=== PATIENT | female | born 1985 | race Caucasian/White ===

== ENCOUNTER 2024-11-26 12:21 | Emergency (ER) | payer OTHER, SELFPAY ==
[2024-11-26 12:23] VITALS: BP 111/80; PULSE 64; RESP 18; TEMP 36.9; O2SAT 95; BMI 26.9
--- NOTE | 2024-11-26 12:30 | EX.ED.DYSGE1 ---
HPI History of Present Illness Chief Complaint: Seizure [facility] Medical History (Updated 11/26/24 @ 12:30 by Meghna Centeno) Epilepsy Home Medications ?Medication ?Instructions ?Recorded ?Last Taken ?Type cephalexin 500 mg capsule 500 mg PO TID #15 caps 11/26/24 Unknown Rx gabapentin 100 mg capsule 100 mg PO DAILY 11/26/24 11/25/24 History gabapentin 300 mg capsule 300 mg PO DAILY 11/26/24 11/25/24 History lacosamide 200 mg tablet 200 mg PO BID 11/26/24 11/25/24 History lamotrigine 25 mg tablet 50 mg PO DAILY 11/26/24 Unknown History levetiracetam 500 mg tablet 1,500 mg PO BID 11/26/24 11/25/24 History (Keppra) metoclopramide HCl 5 mg tablet 25 mg PO DAILY 11/26/24 11/25/24 History (Reglan) Allergy/AdvReac Type Severity Reaction Status Date / Time bee venom protein (honey Allergy Severe Anaphylaxis Verified 11/26/24 12:23 bee) (bees) Sulfa (Sulfonamide Allergy Mild Rash Verified 11/26/24 12:23 Antibiotics) Surgical History (Updated 11/26/24 @ 12:30 by Meghna Centeno) Hx of cholecystectomy Social History Smoking Status: Never smoker EXAM Physical Exam Const Vital Signs: 11/26/24 12:23 11/26/24 13:59 11/26/24 14:41 Temperature 98.5 F Temperature Source Oral Pulse Rate 64 67 65 Respiratory Rate 18 21 H 12 Blood Pressure 111/80 102/74 108/72 Blood Pressure Mean 90 83 84 Pulse Ox 95 95 98 Oxygen Delivery Method Room Air Room Air 11/26/24 15:55 Temperature 98 F Temperature Source Pulse Rate 66 Respiratory Rate 22 H Blood Pressure 102/71 Blood Pressure Mean 81 Pulse Ox 95 Oxygen Delivery Method MDM MDM MDM Narrative Medical decision making narrative: HISTORY OF PRESENT ILLNESS: Chief complaint: Questionable seizure 39-year-old female presents altered mental status after being found down in the field. There is a reported history of seizure disorder. Per EMS patient was confused on initial evaluation. Patient states she has recently had a med change which she added lacosamide to her seizure control regimen which included Keppra and lamotrigine. Patient states since she made this change and added lacosamide she has had increased frequency of seizures. Notes last seizure was today. Patient was found down and confused. Patient notes lasting treatment which was at home. She denies tongue biting. Denies recent headache. Denies trauma. Denies fever. Notes compliance of medication although she got take medication this morning. Denies trouble with urination, burning, frequency or urgency. Denies change in bowel or bladder habits. REVIEW OF SYSTEMS: Pertinent positives: Seizure Pertinent negatives: Headache, chest pain, vomiting, abdominal pain PHYSICAL EXAM: Nursing triage notes reviewed, Vital signs reviewed Constitutional: please see mdm HENT: MMM, no tongue biting Eyes: Pupils equal round and reactive to light, Extraocular muscles intact Neck: No stridor, no JVD, full neck ROM Lungs: Clear to auscultation, No wheezing or rales. No increased work of breathing, no conversational dyspnea, no accessory muscle use, no nasal flaring. No respiratory distress noted Heart: Regular rate and rhythm, No murmurs, No rubs and No gallops, 2+ distal pulses (radial, femoral, posterior tibial) in all extremities Abdomen: Soft, there is no tenderness, rigidity, rebound or guarding, no obvious peritoneal signs, no palpable pulsatile abdominal masses, no auscultated abdominal bruit : No CVAT, no bowel or bladder incontinence noted Extremities: No edema Neuro: Alert, oriented to person, place, time no new focal neurological deficits, cranial nerves II through XII intact, 5/5 strength in all present extremities. Intact sensation to light touch in all present extremities, 2+ reflexes bilateral patella tendons. Skin: No rash or lesions noted MEDICAL DECISION MAKING: Chief Complaint: please see HPI External records reviewed: No records in [facility]. Reviewed [facility] Factors affecting care: history of seizures Social determinants of health: none History obtained from others: none Consults: none [facility] Narrative: Patient was initially hemodynamically stable, afebrile and nontoxic. No tongue biting noted. No focal deficits noted patient appeared slightly confused consistent with a postictal state I considered the following differential diagnosis: Breakthrough seizure, ICH, hyponatremia, hypoglycemia I obtained a broad lab and imaging workup to further determine if the patient was suffering from a life-threatening etiology. Initially gave IV fluids and antiseizure medicines (IV Keppra, oral lacosamide) ALL IMAGES (IF OBTAINED) HAVE BEEN PERSONALLY REVIEWED AND INTERPRETED BY MYSELF. EKG with normal sinus rhythm rate of 61, left axis deviation, normal intervals, no STEMI CBC without leukocytosis, severe anemia, no thrombocytopenia. CMP without evidence of acute kidney injury, significant electrolyte abnormality, anion gap to suggest end organ hypo-perfusion, no evidence of metabolic acidosis with a normal bicarbonate, no evidence of hepatobiliary obstructive pathology. CT scan of the head shows no evidence of ICH or mass I have personally reviewed the patient's chest x-ray. Chest x-ray is unremarkable for pulmonary edema, pneumothorax, pneumonia or focal cardiopulmonary abnormality. Alcohol level pending Urinalysis completed centimeter infection. Will send for culture. Will start on Keflex prophylactically given the patient's from out of town Urine test negative, no sign of ectopic Upon reassessment patient vitals remained stable. She was alert and orient x 3 although still drowsy secondary to multiple antiseizure medicines including Ativan. He was able to sit up in bed easily. She has her son, adult friend, son's girlfriend and cousin with her. They feel confident they will care for her at home. She would monitor constantly return if symptoms change or worsen. This time I think she is appropriate for discharge home despite her still being drowsy. The synthesis of the patient history, physical exam, labs images suggest likely breakthrough seizure secondary to underlying condition (epilepsy). The patient had no seizure lasting greater than 5 minutes. No multiple seizures that return to baseline. She was slightly somnolent but mental status was overall improved. Repeat neurologic exam remained intact. She is appropriate for discharge home with instructions to continue her current antiseizure medications and to reach out to her neurologist for further outpatient treatment instructions. Swimming, driving, heavy machinery instructions were also given The patient and/or family, caregivers express understanding. The patient and/or family, caregivers agrees with the plan. Shared decision making: I will have a discussion with the patient and or visitors regarding risk/benefits of further testing or admission. They will be made aware of of the risk/benefits inherent in this decision they will be given the opportunity to voice understanding. Total critical care time today provided was at least 0 minutes. This excludes separately billable procedures. Critical care time (if documented) is secondary to the patient having high probability of clinically significant/life threatening deterioration in the patient's condition which required my urgent intervention. Impression: 1. Seizure 2. History of epilepsy Dispo: Discharge home This note was generated with [employer] dictation software. It may contain incorrect words, spelling, and punctuation that were not noted in review of the chart prior to signing. Lab Data Labs: Laboratory Results - last 24 hr 11/26/24 11/26/24 12:08 15:15 WBC 6.7 RBC 4.07 L Hgb 12.2 Hct 35.6 L MCV 87.5 MCH 30.0 MCHC 34.3 RDW Std Deviation 39.1 RDW Coeff of Son 12.2 Plt Count 248 MPV 10.4 Immature Gran % (Auto) 0.400 Neut % (Auto) 67.1 Lymph % (Auto) 22.6 Amelia % (Auto) 7.8 Eos % (Auto) 1.5 Baso % (Auto) 0.6 Absolute Neuts (auto) 4.5 Absolute Lymphs (auto) 1.51 Nucleated RBC % 0 Sodium 140 Potassium 3.7 Chloride 106 Carbon Dioxide 23.3 Anion Gap 11 BUN 11 Creatinine 0.60 L Estim Creat Clear Calc 133.39 Est GFR (MDRD) Non-Af 119 BUN/Creatinine Ratio 18.5 Glucose 105 H Calcium 9.4 Total Bilirubin 0.28 AST 16 ALT 10 Alkaline Phosphatase 104 Total Protein 6.8 Albumin 4.2 Globulin 2.6 Albumin/Globulin Ratio 1.6 Urine Color Straw Urine Clarity Sl. Cloudy Urine pH 6.0 Ur Specific [place] 1.010 Urine Protein Negative Urine Glucose (UA) Normal Urine Ketones Negative Urine Occult Blood Negative Urine Nitrite Positive H Urine Bilirubin Negative Urine Urobilinogen Normal Ur Leukocyte Esterase Negative Urine Test Negative Ethyl Alcohol < 10.1 Radiography Chest X-Ray - ED: Read by ED Physician Diagnostic Testing: Clinical Impression(s) from Imaging Studies Brain CT 11/26/24 12:39 IMPRESSION: No significant abnormality is identified. Reading Location: [facility] Chest X-Ray 11/26/24 13:05 IMPRESSION: No acute pulmonary process Reading Location: [id number] Discharge Plan Triage Chief Complaint: Seizure ED Provider: Major Solis Dx/Rx/DC Orders Instructions: ED Seizure, Recurrent (Adult) Prescriptions: New cephalexin 500 mg capsule 500 mg PO TID Qty: 15 0RF No Action metoclopramide HCl [Reglan] 5 mg tablet 25 mg PO DAILY Rx Instructions: pt states takes 25mg daily and that she is sure that is the dose because they wanted to start her on lowest dose possible. mrt explained med comes in 5mg and 10mg tablet and pt was insistent that she takes 25mg tab gabapentin 100 mg capsule 100 mg PO DAILY Rx Instructions: am gabapentin 300 mg capsule 300 mg PO DAILY Rx Instructions: pm levetiracetam [Keppra] 500 mg tablet 1,500 mg PO BID lacosamide 200 mg tablet 200 mg PO BID lamotrigine 25 mg tablet 50 mg PO DAILY Stand Alone Forms: ED Work / School Excuse Primary Care Provider: Care Physician,No Primary Referrals: Your Neurologist [Other] (call when able) Activity Restrictions/Additional Instructions: Thank you for trusting us with your care today! Thank you for trusting us with your care today. Your labs images are reassuring. CT scan of the brain showed no evidence of bleeding in the brain or abnormalities to precipitate your seizure. There is no infectious findings on your workup. Your electrolytes and sugar levels were within normal limits. Your urine test was negative. Your urinalysis was also negative for signs of acute infection. This was sent for culture. In the meantime I will start you on antibiotics to your culture results. Please take your antiseizure medicines as prescribed. Please call your neurologist to come up with a good outpatient plan. Please return if you have a seizure lasting greater than 5 minutes or if you have multiple seizures without returning to baseline. Please take Tylenol (2 pills, 650 mg), ibuprofen (2 pills, 400 mg) every 6 hours as needed for pain and fever control. Please return to the emergency department if your symptoms change or worsen. Please follow with your primary care physician for further outpatient evaluation and management. Print Language: Sami Disposition Disposition: Home, Self Care
--- NOTE | 2024-11-26 12:32 | ED.RN ---
P HAS HAD INCREASED SEIZURES, 3 DAYS IN A ROW. MEDS BEING ADJUSTED
--- NOTE | 2024-11-26 12:39 | CT_ITS ---
PROCEDURE: BRAIN/HEAD WITHOUT CONTRAST 11/26/2024 REASON FOR EXAM: SEIZURE TECHNIQUE: BRAIN/HEAD WITHOUT CONTRAST Coronal and Sagittal reconstruction series were provided. One or more dose reduction techniques were used (e.g., Automated exposure control, adjustment of the mA and/or kV according to patient size, use of iterative reconstruction technique. RADIATION DOSE SUMMARY: CTDlvol: 44.99 mGy DLP: 779.24 mGycm COMPARISON: None. FINDINGS: Brain: No intracranial hemorrhage, mass, or mass effect is seen. Normal. No orbital pathology is noted. CSF Spaces: Normal Sinuses/Mastoids: Clear at visualized levels Bones: Unremarkable. CT/Brain/Head without Contrast IMPRESSION: No significant abnormality is identified. Reading Location: [place] [id number]
--- NOTE | 2024-11-26 12:40 | EKG12_ITS ---
Test Reason : SEIZURE Blood Pressure : */* mmHG Vent. Rate : 61 BPM Atrial Rate : 61 BPM P-R Int : 144 ms QRS Dur : 88 ms QT Int : 458 ms P-R-T Axes : 20 -47 21 degrees QTcB Int : 461 ms Normal sinus rhythm Left anterior fascicular block Abnormal ECG Confirmed by FABY FISHER, PETER ([id number]), editor city RHINA LEWIS ([id number]) on 11/27/2024 1:37:37 PM Referred By: Confirmed By: PETER HOBBS MD
[2024-11-26 12:49] LABS: Absolute Lymphocyte Count 1.51 X10^3/uL (0.83-4.51); Absolute Neutrophil Count 4.5 X10^3/uL (2.0-7.7); Basophil# 0.04 X10^3/uL; Basophil% 0.6 % (0-1); Eosinophils% 1.5 % (0-5); Hematocrit 35.6 % (37-47); Hemoglobin 12.2 g/dL (12.0-15.0); Lymphocyte # 1.51 X10^3/ul (0.83-4.51); Lymphocyte % 22.6 % (19-41); Mean Corp Hgb Conc 34.3 g/dL (32-36); Mean Corpuscular Volume 87.5 fL (81-99); Mean Platelet Vol. 10.4 fl (6.2-12.0); Monocyte# 0.52 X10^3/uL; Monocyte% 7.8 % (0-10); NRBC Flagged by Analyzer 0 % (0-5); Neutrophil # 4.47 X10^3/uL (2.7-7.7); Neutrophil % 67.1 % (47-70); Platelet Count 248 K/mm3 (150-450); RBC Distribution Width CV 12.2 % (11.6-14.6); RBC Distribution Width SD 39.1 fl (35.1-43.9); Red Blood Count 4.07 M/mm3 (4.2-5.4); White Blood Count 6.7 K/mm3 (4.4-11.0)
[2024-11-26] MEDS: 0.9% Normal Saline (1000mL) 1,000 ML 999 ML IV (12:56)
[2024-11-26] MEDS: Lorazepam 2 MG/ML WCH Syringe 1 MG IV (12:57)
--- NOTE | 2024-11-26 13:05 | RAD_ITS ---
PROCEDURE: CHEST 1 VIEW (PORTABLE) 11/26/2024 REASON FOR EXAM: SEIZURE TECHNIQUE: Frontal view of the chest. COMPARISON: None FINDINGS: Hardware: EKG leads overlie the chest Heart: The heart size is normal. Lungs: The lungs are clear. Bones: The bones are unremarkable. Other: RAD/Chest 1 View (Portable) IMPRESSION: No acute pulmonary process Reading Location: [id number]
[2024-11-26 13:24] LABS: ALB/GLOB Ratio 1.6 RATIO (0.9-2.4); AST(SGOT) 16 U/L (<=31); Alanine Aminotransfer ALT/SGPT 10 U/L (<=34); Albumin, Serum 4.2 g/dL (3.5-5.0); Alkaline Phosphatase 104 U/L (35-104); Anion Gap 11 (5-15); BUN 11 mg/dL (4-19); BUN/Creat Ratio 18.5 RATIO (10-20); Calcium,Total 9.4 mg/dL (7.6-11.0); Carbon Dioxide 23.3 mmol/L (21.0-32.0); Chloride 106 mmol/L (98-108); EST Glomerular Filtration Rate 119 (>60); Estimated Creatinine Clearance 133.39 ml/min (50-250); Globulin 2.6 g/dL (2.2-4.2); Glucose 105 mg/dL (70-99); Potassium 3.7 mmol/L (3.3-5.1); Protein, Total 6.8 g/dL (5.9-8.4); Sodium Level 140 mmol/L (133-145); Total Bilirubin 0.28 mg/dL (0.00-1.30)
[2024-11-26] MEDS: levETIRAcetam IV 1,000 MG/100 ML BAG 400 MG IV (13:29)
[2024-11-26 13:59] VITALS: BP 102/74; PULSE 67; RESP 21; O2SAT 95
[2024-11-26 14:41] VITALS: BP 108/72; PULSE 65; RESP 12; O2SAT 98
--- NOTE | 2024-11-26 14:41 | ED.RN ---
family/friends in waiting room loudly arguing and cussing, can be heard at back nurses station.
[2024-11-26] MEDS: Metoclopramide 10 MG/2 ML Vial 5 MG IV (15:07)
[2024-11-26] MEDS: Lacosamide 100 MG Tablet 200 MG PO (15:12)
[2024-11-26 15:24] LABS: Mucous, Urine 0 SEEN /hpf (<or=2+)
[2024-11-26 15:33] LABS: Internal QC Validated? YES +Cl - CLEAR BKGD
[2024-11-26 15:34] LABS: Pregnancy, Urine Negative Negative; Record Kit Lot#,Urine Preg 947241
[2024-11-26 15:43] LABS: Color, Urine Straw (Yellow); Glucose, Dipstick Normal (Normal); Ketone-Dipstick Negative (Negative); Leukocyte Esterase-Dipstick Negative /ul (Negative); Nitrite-Dipstick Positive (Negative); Occult Blood-Urine Negative /ul (Negative); Protein-Dipstick Negative (Negative); Urine Bilirubin Dipstick Negative (Negative); Urine Clarity Sl. Cloudy (Clear); Urine Urobilinogen Normal (Normal)
[2024-11-26 15:55] VITALS: BP 102/71; PULSE 66; RESP 22; TEMP 36.6; O2SAT 95
[2024-11-26 15:56] LABS: Alcohol, Blood (Medical)-Serum < 10.1 mg/dL (<=10.0)
--- NOTE | 2024-11-26 15:56 | ED.RN ---
discussed with Dr. Solis concerns regarding d/c of pt. Dr. Solis re-evaluated the pt, Dr. Solis stated that the pt is A&O x 3 and discussed with family discharge instructions and any concerns with family. family states that there will be multiple people with the pt. Dr. Solis states from ED stand point pt can be discharged.
[2024-11-26 16:06] LABS: Bacteria 4+ /hpf (None Seen); Red Blood Cells-Urine 0-5 SEEN /hpf (0-5); Squamous Epithelial Cells - UA 0-5 SEEN /hpf (5-10); White Blood Cells 0-5 SEEN /hpf (0-5)
== END 2024-11-26 16:09 | disposition home or self-care (01) ==
PROVIDERS: Emergency Provider Emergency Medicine; Visit Provider Emergency Medicine
DX: G40.909 Epilepsy, unspecified, not intractable, without status epilepticus (principal); Z79.899 Other long term (current) drug therapy
CPT/HCPCS: 36415; 70450; 71045; 80053; 81001; 81025; 82077; 85025; 87077; 87086; 87088; 87186; 93005; 96361; 96365; 96366; 96375; 99285